=== PATIENT | female | born 1985 | race Caucasian/White ===

== ENCOUNTER 2018-04-02 16:12 | Emergency (ER) | payer MEDICAID, OTHER ==
[2018-04-02] MEDS: ONDANSETRON (ODT) 4 MG TAB ODT (19:24)
[2018-04-02 20:01] LABS: URINE BLOOD (Dip) POC Trace-intact (NEGATIVE); URINE GLUCOSE (Dip) POC Negative (NEGATIVE); URINE KETONES (Dip) POC Negative (NEGATIVE); URINE LEUKOCYTE EST (Dip) POC Negative (NEGATIVE); URINE NITRITE (Dip) POC Negative (NEGATIVE); URINE TOTAL PROTEIN POC Negative (NEGATIVE)
[2018-04-02] MEDS: KETOROLAC 15 MG INJ IM (20:12)
== END 2018-04-02 21:05 | disposition home or self-care (01) ==
LOC: FTE 16:12
DX: S13.9XXA Sprain of joints and ligaments of unspecified parts of neck, initial encounter (principal); R11.2 Nausea with vomiting, unspecified; R51 Headache; W22.8XXA Striking against or struck by other objects, initial encounter; Y92.9 Unspecified place or not applicable
CPT/HCPCS: 70450; 72040; 81003; 81025; 96372; 99285-25

== ENCOUNTER 2018-10-23 13:08 | Emergency (ER) | payer MEDICAID | END 2018-10-23 16:16 | disposition home or self-care (01) | LOC: FTE 16:16 | DX: R05 Cough (principal); R50.9 Fever, unspecified | CPT/HCPCS: 99283; Z7502 ==

== ENCOUNTER 2019-04-03 16:49 | Outpatient (CLI) | payer OTHER, MEDICAID | END 2019-04-03 21:00 | disposition home or self-care (01) | LOC: OBT 16:49 → L-D 16:51 → OBT 21:00 | DX: O36.5930 Maternal care for other known or suspected poor fetal growth, third trimester, not applicable or unspecified (principal); Z3A.37 37 weeks gestation of pregnancy | CPT/HCPCS: 76818; 76820 ==

== ENCOUNTER 2019-04-06 13:17 | Outpatient (CLI) | payer OTHER ==
[2019-04-06 15:12] LABS: ADD UMIC YES; UR ASCORBIC ACID NEGATIVE (NEGATIVE); UR BILIRUBIN (Dip) NEGATIVE (NEGATIVE); UR BLOOD (Dip) NEGATIVE (NEGATIVE); UR CLARITY CLEAR (CLEAR); UR COLOR YELLOW (YELLOW); UR GLUCOSE (Dip) NEGATIVE (NEGATIVE); UR KETONES (Dip) 1+ mg/dL (NEGATIVE); UR LEUKOCYTE ESTERASE (Dip) 3+ Leu/ul (NEGATIVE); UR NITRITE (Dip) NEGATIVE (NEGATIVE); UR RBC 1 /HPF (0-5); UR SPECIFIC GRAVITY (Dip) 1.014 (1.003-1.030); UR SQUAMOUS EPITHELIAL CELL FEW /HPF (FEW); UR TOTAL PROTEIN (Dip) NEGATIVE (NEGATIVE); UR UROBILINOGEN (Dip) NEGATIVE (NEGATIVE); UR WBC 3 /HPF (0-5)
[2019-04-06 15:28] LABS: RUPTURE FETAL MEMBRANES NEGATIVE (NEGATIVE)
[2019-04-06 16:05] LABS: AMPHETAMINE/METHAMPHETAMINE Negative (NEGATIVE); BARBITURATES Negative (NEGATIVE); BENZODIAZEPINES Negative (NEGATIVE); CANNABINOIDS Negative (NEGATIVE); COCAINE Negative (NEGATIVE); OPIATES Negative (NEGATIVE)
[2019-04-06 16:52] LABS: FREE THYROXINE INDEX (Calc) 2.91 ug/ml (0.65-3.89); T3 UPTAKE 23.1 % (23.5-40.5); T4 (THYROXINE) 12.6 ug/dl (5.5-11.0)
[2019-04-06 16:52] LABS: FREE T4 (FREE THYROXINE) 0.89 ng/dl (0.79-2.35)
== END 2019-04-06 18:25 | disposition home or self-care (01) ==
LOC: OBT 13:17 → L-D 13:17 → OBT 18:25
DX: O26.893 Other specified pregnancy related conditions, third trimester (principal); Z3A.39 39 weeks gestation of pregnancy; R51 Headache; R22.40 Localized swelling, mass and lump, unspecified lower limb
CPT/HCPCS: 76815; 76818; 76820; 80307; 81001; 84112; 84436; 84439; 84443; 84479

== ENCOUNTER 2019-04-09 21:55 | Inpatient (IN) | payer OTHER ==
[2019-04-10] MEDS ORDERED: CARBOPROST 250 MCG INJ IM (01:00)
[2019-04-10] MEDS ORDERED: LIDOCAINE 1% (MPF) 30 ML INJ INJ (01:00)
[2019-04-10] MEDS ORDERED: OXYTOCIN 30 UNITS/LR 500 ML IV (01:00)
[2019-04-10] MEDS ORDERED: MISOPROSTOL 200 MCG TAB PR (01:00)
[2019-04-10] MEDS ORDERED: MINERAL OIL LIGHT 10 ML VIAL TOP (01:00)
[2019-04-10 01:33] LABS: ADD MAN DIFF? NO
[2019-04-10 01:34] LABS: WHITE BLOOD COUNT 11.4 10^3/ul (4.8-10.8)
[2019-04-10 01:34] LABS: BASOPHILS % 0.2 % (0.0-2.0); EOSINOPHILS # 0.1 10^3/ul (0.0-0.5); EOSINOPHILS % 0.7 % (0.0-7.0); HEMATOCRIT 30.8 % (37.0-47.0); HEMOGLOBIN 10.4 g/dl (12.0-16.0); LYMPHOCYTES # 2.2 10^3/ul (0.8-2.9); LYMPHOCYTES % 19.2 % (15.0-51.0); MEAN CORPUSCULAR HEMOGLOBIN 31.6 pg (29.0-33.0); MEAN CORPUSCULAR HGB CONC 33.8 g/dl (32.0-37.0); MEAN CORPUSCULAR VOLUME 93.6 fl (82.0-101.0); MEAN PLATELET VOLUME 11.5 fl (7.4-10.4); MONOCYTE # 0.7 10^3/ul (0.3-0.9); MONOCYTES % 6.2 % (0.0-11.0); NEUTROPHIL # 8.3 10^3/ul (1.6-7.5); NEUTROPHILS % 73.4 % (39.0-77.0); PLATELET COUNT 189 10^3/UL (140-415); RED BLOOD COUNT 3.29 10^6/ul (4.20-5.40); RED CELL DISTRIBUTION WIDTH 12.5 % (11.5-14.5)
[2019-04-10 01:57] LABS: INR 0.92; PARTIAL THROMBOPLASTIN TIME 26.5 Sec (23.0-35.0); PROTIME 12.5 Sec (11.9-14.9)
[2019-04-10] MEDS: LACTATED RINGER'S 1,000 ML IV ×3 (02:22→20:44)
[2019-04-10] MEDS: AMPICILLIN 2 GM/NS (PMX) 100 ML IV (02:26)
[2019-04-10] MEDS: MISOPROSTOL 50 MCG CAPSULE PO ×4 (04:52→17:01)
[2019-04-10] MEDS: AMPICILLIN 1 GM/NS (PMX) 50 ML IV ×5 (05:30→21:12)
[2019-04-10] MEDS: LEVOTHYROXINE 100 MCG TAB PO (08:45)
[2019-04-10] MEDS: LEVOTHYROXINE 125 MCG TAB PO (08:45)
[2019-04-10 10:35] LABS: HEPATITIS B SURFACE ANTIGEN NEGATIVE (NEGATIVE)
[2019-04-10 15:31] LABS: RAPID PLASMA REAGIN NONREACTIVE (NR)
[2019-04-10] MEDS ORDERED: LACTATED RINGER'S 1,000 ML IV (21:31)
[2019-04-10] MEDS: BUTORPHANOL 2 MG INJ IV (21:38)
[2019-04-11] MEDS: OXYTOCIN 30 UNITS/LR 500 ML IV ×3 (00:19→01:27)
[2019-04-11] MEDS: METHYLERGONOVINE 0.2 MG INJ IM (00:23)
[2019-04-11] MEDS ORDERED: OXYTOCIN 30 UNITS/LR 500 ML IV (00:30)
[2019-04-11] MEDS ORDERED: CARBOPROST 250 MCG INJ IM (00:30)
[2019-04-11] MEDS ORDERED: MISOPROSTOL 200 MCG TAB PR (00:30)
[2019-04-11] MEDS ORDERED: METHYLERGONOVINE 0.2 MG INJ IM (00:30)
[2019-04-11] MEDS ORDERED: NACL 0.9% 3 ML SYG IV (00:30)
[2019-04-11] MEDS: LACTATED RINGER'S 1,000 ML IV ×2 (00:43→08:43)
[2019-04-11] MEDS: IBUPROFEN 600 MG TAB PO (01:15)
[2019-04-11] MEDS ORDERED: HYDROCODONE/APAP (5/325) TAB PO ×2 (03:30→04:00)
[2019-04-11] MEDS ORDERED: KETOROLAC 30 MG INJ IM (04:00)
[2019-04-11 04:40] LABS: AMPHETAMINE/METHAMPHETAMINE Negative (NEGATIVE); BARBITURATES Negative (NEGATIVE); BENZODIAZEPINES Negative (NEGATIVE); CANNABINOIDS Negative (NEGATIVE); COCAINE Negative (NEGATIVE); OPIATES Negative (NEGATIVE)
[2019-04-11 05:00] LABS: ADD MAN DIFF? NO
[2019-04-11 05:09] LABS: BASOPHILS % 0.2 % (0.0-2.0); EOSINOPHILS % 0.1 % (0.0-7.0); HEMOGLOBIN 10.3 g/dl (12.0-16.0); LYMPHOCYTES # 1.6 10^3/ul (0.8-2.9); LYMPHOCYTES % 8.6 % (15.0-51.0); MEAN CORPUSCULAR HEMOGLOBIN 31.5 pg (29.0-33.0); MEAN CORPUSCULAR HGB CONC 34.3 g/dl (32.0-37.0); MEAN CORPUSCULAR VOLUME 91.7 fl (82.0-101.0); MEAN PLATELET VOLUME 11.9 fl (7.4-10.4); MONOCYTE # 0.9 10^3/ul (0.3-0.9); MONOCYTES % 4.8 % (0.0-11.0); NEUTROPHIL # 16.3 10^3/ul (1.6-7.5); NEUTROPHILS % 85.8 % (39.0-77.0); PLATELET COUNT 173 10^3/UL (140-415); RED BLOOD COUNT 3.27 10^6/ul (4.20-5.40); RED CELL DISTRIBUTION WIDTH 12.5 % (11.5-14.5)
[2019-04-11] MEDS: IBUPROFEN 800 MG TAB PO ×4 (05:37→23:39)
[2019-04-11] MEDS: LEVOTHYROXINE 100 MCG TAB PO (05:37)
[2019-04-11] MEDS: LEVOTHYROXINE 125 MCG TAB PO (05:37)
[2019-04-11] MEDS: WITCH HAZEL/GLYCERIN PAD PR (05:37)
[2019-04-11] MEDS: BENZOCAINE 20% 56 ML SPRAY TOP (05:37)
[2019-04-12 04:51] LABS: ADD MAN DIFF? NO
[2019-04-12 04:59] LABS: BASOPHILS % 0.4 % (0.0-2.0); EOSINOPHILS # 0.1 10^3/ul (0.0-0.5); EOSINOPHILS % 0.9 % (0.0-7.0); HEMATOCRIT 25.6 % (37.0-47.0); HEMOGLOBIN 8.7 g/dl (12.0-16.0); LYMPHOCYTES # 2.8 10^3/ul (0.8-2.9); LYMPHOCYTES % 25.3 % (15.0-51.0); MEAN CORPUSCULAR HEMOGLOBIN 31.8 pg (29.0-33.0); MEAN CORPUSCULAR VOLUME 93.4 fl (82.0-101.0); MEAN PLATELET VOLUME 11.6 fl (7.4-10.4); MONOCYTE # 0.7 10^3/ul (0.3-0.9); MONOCYTES % 6.2 % (0.0-11.0); NEUTROPHIL # 7.3 10^3/ul (1.6-7.5); NEUTROPHILS % 66.8 % (39.0-77.0); PLATELET COUNT 168 10^3/UL (140-415); RED BLOOD COUNT 2.74 10^6/ul (4.20-5.40); RED CELL DISTRIBUTION WIDTH 12.6 % (11.5-14.5)
[2019-04-12 04:59] LABS: WHITE BLOOD COUNT 10.9 10^3/ul (4.8-10.8)
[2019-04-12] MEDS: IBUPROFEN 800 MG TAB PO ×3 (05:59→18:07)
[2019-04-12] MEDS: LEVOTHYROXINE 100 MCG TAB PO (05:59)
[2019-04-12] MEDS: LEVOTHYROXINE 125 MCG TAB PO (05:59)
[2019-04-12] MEDS: LANOLIN HPA 1 PKT TOP (11:29)
[2019-04-13] MEDS: WITCH HAZEL/GLYCERIN PAD PR (00:16)
[2019-04-13] MEDS: IBUPROFEN 800 MG TAB PO ×3 (00:16→12:17)
[2019-04-13] MEDS: LEVOTHYROXINE 125 MCG TAB PO (05:46)
[2019-04-13] MEDS: LEVOTHYROXINE 100 MCG TAB PO (05:46)
== END 2019-04-13 13:50 | disposition home or self-care (01) | DRG 807 ==
LOC: OBT 21:55 → MS1 04-11 04:05 → L-D 21:56 → OBT 22:00 → L-D 04-10 23:20
PROVIDERS: Specialist
PROC: 10E0XZZ Delivery of Products of Conception, External Approach (ICD-10-PCS; principal; 2019-04-13)
PROC: 0HQ9XZZ Repair Perineum Skin, External Approach (ICD-10-PCS; 2019-04-13)
DX: O99.284 Endocrine, nutritional and metabolic diseases complicating childbirth (principal); E03.9 Hypothyroidism, unspecified; O70.0 First degree perineal laceration during delivery; O36.5930 Maternal care for other known or suspected poor fetal growth, third trimester, not applicable or unspecified; Z3A.38 38 weeks gestation of pregnancy; Z37.0 Single live birth
CPT/HCPCS: 76815; 76818; 80307; 85025; 85610; 85730; 86592; 86850; 86900; 86901; 87340; 99464